=== PATIENT | female | born 1990 | race Caucasian/White ===

== ENCOUNTER → 2019-12-28 | Outpatient (CLI) | payer MEDICAID | END | disposition home or self-care (01) | LOC: LDRP 14:51 → OB 14:51 → UNDOADMOB 14:51 → UNDODISOB 16:30 → EDSTATUS 01-12 14:53 | PROVIDERS: ATTEND Specialist | DX: Z34.82 Encounter for supervision of other normal pregnancy, second trimester (principal); Z3A.25 25 weeks gestation of pregnancy | CPT/HCPCS: 76805; G0378 ==

== ENCOUNTER 2020-03-28 11:02 | Observation (INO) | payer MEDICAID ==
[2020-03-28] MEDS ORDERED: PREN-96 PO (12:05)
== END 2020-03-28 12:40 | disposition home or self-care (01) ==
LOC: LDRP 11:02
PROVIDERS: ADMIT Obstetrics & Gynecology; ATTEND Obstetrics & Gynecology
DX: O48.0 Post-term pregnancy (principal); Z3A.40 40 weeks gestation of pregnancy
CPT/HCPCS: 59025; 76818; 81002; G0378

== ENCOUNTER 2020-03-30 11:42 | Observation (INO) | payer MEDICAID ==
[~2020-03-30 11:42] MED LIST: PREN-96 PO
== END 2020-03-30 13:21 | disposition home or self-care (01) ==
LOC: LDRP 11:42
PROVIDERS: ADMIT Specialist; ATTEND Specialist
DX: O48.0 Post-term pregnancy (principal); O41.03X0 Oligohydramnios, third trimester, not applicable or unspecified; Z3A.40 40 weeks gestation of pregnancy
CPT/HCPCS: 59025; 76818; 81002; G0378

== ENCOUNTER 2020-04-01 09:18 | Observation (INO) | payer MEDICAID | END 2020-04-01 10:55 | disposition home or self-care (01) | LOC: LDRP 09:18 | PROVIDERS: ADMIT Specialist; ATTEND Specialist | DX: O48.0 Post-term pregnancy (principal); Z20.828 Contact with and (suspected) exposure to other viral communicable diseases; Z3A.40 40 weeks gestation of pregnancy | CPT/HCPCS: 59025; 76818; 81002; G0378; U0003 ==

== ENCOUNTER 2020-04-03 19:13 | Observation (INO) | payer MEDICAID | END 2020-04-03 20:28 | disposition home or self-care (01) | LOC: LDRP 19:13 | PROVIDERS: ADMIT Obstetrics & Gynecology; ATTEND Obstetrics & Gynecology | DX: O48.0 Post-term pregnancy (principal); Z3A.41 41 weeks gestation of pregnancy | CPT/HCPCS: 59025; 76818; 81002; G0378 ==

== ENCOUNTER 2020-04-04 15:10 | Inpatient (IN) | payer MEDICAID ==
[~2020-04-04] VITALS: Ht 33 cm; Wt 0.5 kg
[2020-04-04] MEDS ORDERED: LACT. RINGERS/OXYTOCIN 20UNITS 1,000 ML IV SCH (16:30)
[2020-04-04] MEDS ORDERED: LIDOCAINE 2%HCL (LOCAL ANESTH.) INJ 20ML MDV ID ONE ×2 (16:30→22:30)
[2020-04-04] MEDS ORDERED: PHISODERM TOP SOLN 240ML BTL TOP PRN (16:30)
[2020-04-04] MEDS ORDERED: PENICILLIN G POT 5MIL/D5 50ML 50 ML IV ONE (16:30)
[2020-04-04] MEDS ORDERED: LACTATED RINGER'S 1,000 ML IV SCH (16:30)
[2020-04-04] MEDS ORDERED: DERMOPLAST 60ML BOTTLE TOP PRN (16:30)
[2020-04-04] MEDS ORDERED: WITCH HAZEL-GLYCERIN PAD TOP PRN (16:30)
[2020-04-04 17:34] LABS: Basophils # (auto) 0 10 ^3/uL (0-0.2); Basophils % (auto) 0.3 % (0.0-2.0); Eosinophils # (auto) 0.1 10 ^3/uL (0-0.8); Eosinophils % (auto) 0.6 % (0.0-7.0); Hematocrit 39.6 % (36.0-46.0); Hemoglobin 13.7 g/dL (12.2-16.2); Lymphocytes # (auto) 1.7 10 ^3/uL (0.4-5.4); Lymphocytes % (auto) 12.6 % (10.0-50.0); Mean Corpuscular Hgb Conc. 34.7 g/dL (32.0-36.0); Monocytes # (auto) 0.8 10 ^3/uL (0-1.3); Monocytes % (auto) 5.5 % (0.0-12.0); Neutrophils # (auto) 11.1 10 ^3/uL (1.6-8.6); Platelet Count (auto) 226 10^3/uL (140-450); Red Blood Cells 4.16 10^6/uL (4.0-5.20); Red Cell Distribution Width 12.5 % (11.8-14.3); White Blood Cell 13.7 10^3/uL (4.4-10.8)
[2020-04-04 17:48] LABS: Urine Bacteria NONE SEEN /hpf (None Seen); Urine Blood Negative /uL (Negative); Urine Mucus FEW (None Seen); Urine Specific Gravity 1.018 (1.001-1.035); Urine WBC 18 /hpf (0 - 5); Urine WBC Clumps PRESENT /hpf (None Seen)
[2020-04-04 17:48] LABS: INR 0.94 (0.9-1.15); Partial Thromboplastin Time 28.7 sec (23.0-31.2)
[2020-04-04 17:49] LABS: Alcohol, Urine < 3.0 mg/dL (0-10); Amphetamine Screen, Urine NEGATIVE (NEGATIVE); Barbiturate Scree,Urine NEGATIVE (NEGATIVE); Benzodiazephine Screen, Urine NEGATIVE (NEGATIVE); Cannabinoid Screen, Urine NEGATIVE (NEGATIVE); Cocaine Screen, Urine NEGATIVE (NEGATIVE); Opiate Scree,Urine NEGATIVE (NEGATIVE); Phencyclidine Screen, Urine NEGATIVE (NEGATIVE)
[2020-04-04 17:49] LABS: Albumin 2.8 g/dL (3.4-5.0); Calcium 8.4 mg/dL (8.5-10.1); Potassium 4.1 mmol/L (3.5-5.1)
[2020-04-04 17:52] LABS: BUN/Creatinine Ratio 11.5; Bilirubin, Total 0.6 mg/dL (0.2-1.0); Total Protein 6.2 g/dL (6.4-8.2); Uric Acid 4.9 mg/dL (2.6-6.0)
[2020-04-04] MEDS ORDERED: LIDOCAINE HCL 2 %PF INJ 10ML AMP IJ ONE (18:00)
[2020-04-04] MEDS ORDERED: fentaNYL 400mCg/200ml W ROPIVA 200 ML EPI SCH (18:00)
[2020-04-04] MEDS ORDERED: ePHEDrine SULFATE 50 MG/ML AMP IV ONE ×2 (18:00→19:00)
[2020-04-04] MEDS ORDERED: NALOXONE HCL 0.4 MG/ML VIAL IV ONE ×2 (18:00→19:00)
[2020-04-04] MEDS ORDERED: fentaNYL CITRATE 100 MCG/2 ML VL IV ONE ×2 (18:00→19:00)
[2020-04-04] MEDS ORDERED: ROPIVACAINE HCL 100 ML EPI SCH ×2 (18:30→19:00)
[2020-04-04] MEDS ORDERED: LIDOCAINE 2%HCL (LOCAL ANESTH.) INJ 20ML MDV IJ ONE (19:00)
[2020-04-04] MEDS ORDERED: LACTATED RINGER'S 1,000 ML IV ONE (19:00)
[2020-04-04] MEDS ORDERED: TERBUTALINE SULFATE 1 MG/ML 1ML VIAL SC ONE (19:45)
[2020-04-04] MEDS ORDERED: LACT. RINGERS/OXYTOCIN 20UNITS 1,000 ML IV ONE (19:45)
[2020-04-04] MEDS ORDERED: PENICILLIN G POTASSIUM 2,500,000 UNITS in D5W 5% 50 ML IV SCH (20:30)
[2020-04-04] MEDS ORDERED: ALBUTEROL SULF 2.5 MG/0.5ML(0.5%) NEB SOLN NEB PRN (22:00)
[2020-04-05 03:00] VITALS: BP 102/59
--- NOTE | 2020-04-05 03:35 | NUR ---
Ambulation: Epidural Catheter removed from back without resistance, blue tip intact. Patient OOB with standby assistance by RN. Patient ambulated to bathroom with steady gait. Patient able to void 450ml without difficulty. Pericare teaching provided with returned demonstration by patient. Clean gown provided and bed linen changed. Patient ambulated back to bed with steady gait and no distress noted.
[2020-04-05] MEDS ORDERED: IBUPROFEN 600 MG TAB PO PRN (05:00)
[2020-04-05 07:05] VITALS: BP 113/57
[2020-04-05 10:50] VITALS: BP 113/64
--- NOTE | 2020-04-05 11:22 | NUR ---
IV removal IV DC'd with clean sterile technique, catheter fully intact. Pressure dressing applied to site. Patient tolerated well.
--- NOTE | 2020-04-05 13:39 | NUR ---
assessment re: ss consult Patient is a 30 year old female who is alert and oriented. Prior to admission patient lived home with her grandmother and was independent. Patient has a ss consult for past history of THC in this and she is negative now. Patient informed me she used to smoke marijuana, but has quit. Patient informed me she had a medical marijuana card. Patient informed me she does not plan on smoking anymore. Patient informed me she has all provisions for the baby. Patient informed me she has good family support. FOB was at bedside. Patient is on WIC. Patient is bonding with the baby. I informed patient I would have to report to CPS. Patient verbalized understanding. Report was made to Roxy zamoraair cargo specialist report number #[id number]. Addendum: 04/05/20 at 1344 by Vee Rivera Amended: Links added.
[2020-04-05 15:00] VITALS: BP 122/68
[2020-04-05 18:45] VITALS: BP 113/67
[2020-04-05 23:00] VITALS: BP 122/72
[2020-04-06 03:20] VITALS: BP 112/70
[2020-04-06 06:06] LABS: RPR Non Reactive (Non Reactive)
[2020-04-06 07:15] VITALS: BP 107/69
--- NOTE | 2020-04-06 10:15 | NUR ---
Discharge: Discharge instructions given as ordered. Pt encouraged to follow up with [facility] as instructed. All questions and concerns addressed. Patient verbalized understanding. Medication reconciliation completed and copy given to patient. Patient encouraged to prepare to depart unit.Discharge: Patient taken to vehicle via ambulation with all personal belongings, accompanied by staff and family member. No distress noted at time of departure, no adverse changes in status since initial assessment.
== END 2020-04-06 10:15 | disposition home or self-care (01) | DRG 560 ==
LOC: OBSVTOIN 15:10 → LDRP 15:10
PROVIDERS: ADMIT Specialist; ATTEND Specialist
PROC: 10E0XZZ Delivery of Products of Conception, External Approach (ICD-10-PCS; principal; 2020-04-05)
PROC: 3E0R3BZ Introduction of Anesthetic Agent into Spinal Canal, Percutaneous Approach (ICD-10-PCS; 2020-04-05)
PROC: 00HU33Z Insertion of Infusion Device into Spinal Canal, Percutaneous Approach (ICD-10-PCS; 2020-04-05)
DX: O69.81X0 Labor and delivery complicated by cord around neck, without compression, not applicable or unspecified (principal); Z3A.41 41 weeks gestation of pregnancy; Z37.0 Single live birth; O99.824 Streptococcus B carrier state complicating childbirth
CPT/HCPCS: 36415; 59025; 59409; 62282; 80053; 80307; 81001; 81002; 84550; 85025; 85610; 85730; 86592; 86850; 86900; 86901; 94760; 96360; 96361; 96365; G0378; J2540; J2590; J7060